=== PATIENT | male | born 1955 | race Caucasian/White ===

== ENCOUNTER 2019-08-21 10:04 | Day surgery (SDC) | payer OTHER, SELFPAY ==
[2019-08-20 17:25] VITALS: BMI 311.5
[2019-08-21] VITALS (8 sets, daily range): BP systolic 107–149; BP diastolic 72–98; PULSE 66–91; RESP 18–22; TEMP 36.4–36.6; O2SAT 93–98
[2019-08-21] MEDS: sodium chloride 0.9% 1,000 ML 30 ML IV (10:43)
--- NOTE | 2019-08-21 11:14 | ANES.PREANES ---
Pre-Anesthetic Assessment Pre-Anesthetic Assessment: Height/Weight: Height 1.75 m Weight 957.08 kg Temp Pulse Resp BP Pulse Ox 97.5 F L 78 18 149/98 98 08/21/19 10:31 08/21/19 10:31 08/21/19 10:31 08/21/19 10:31 08/21/19 10:31 Preop Diagnosis: Rotator cuff tear Proposed Procedure: Operation Date: 08/21/19 12:15 Proposed Procedures p Shoulder Arthroscopy, subacromial decompression, biceps tenodesis [id number], S46.012A S46.219A(Left) - Harinder Allen MD s Rotator Cuff Repair(Left) - Harinder Allen MD Familial anesthetic complications: No trouble Was Beta Chika taken within 24 hours: N/A Last intake: Intake Last Liquid Date 08/20/19 Last Liquid Time 20:00 Last Solid Date 08/20/19 Last Solid Time 20:00 Social: Social History: Alcohol (4-5 beers ) and Tobacco Packs per day: 1 ppd Exam: Pre-Anes Outpt Exam: alert, oriented x 3, clear to auscultation bilaterally and regular rate & rhythm Airway: Cervical ROM: WNL MP: 4 Additional comments: missing teeth Pulmonary: Pulmonary: URI Comments: \\runny nose, no cough no fever CV/HEM: CV/HEM: HTN : : None reported Hepatic: Hepatic: None reported GI: GI: None reported Metabolic: Metabolic: None reported Musc/skel: Musc/skel: None reported Neuropsych: Neuropsych: None reported Anesthetic Plan: ASA status: II Anesthesia: General and Regional (specify below) Other: ISB Risk of > 500 ml blood loss (7ml/kg in children): Yes, adequate IV access and fluids planned Meds/Allergies Current Medications: Current Medications Generic Name Dose Route Start Last Admin Trade Name Freq PRN Reason Stop Dose Admin Sodium Chloride 1,000 mls @ 30 ml s/hr 08/21/19 10:15 08/21/19 10:43 Sodium Chloride 0.9% IV 08/22/19 10:14 30 mls/hr .Q24H ROSMERY Administration Data Anesthesia Cardiac Studies: No Data to Display
[2019-08-21] MEDS: midazolam 1 mg/mL INJ 2 mL 2 MG IVP (11:20)
--- NOTE | 2019-08-21 11:35 | ANES.PROC ---
Anesthesia Procedures Procedure/Date: 08/21/19 Nerve Block ^: Nerve Block 1: Main Anesthesia: general anesthesia Time Out Performed: Yes Consent: requested by attending/covering physician, from patient and risks and benefits reviewed Nerve block location: interscalene Anesthesia monitors applied: pulse oximetry and oxygen Nerve block position: semi sitting Anesthetic Used: ropivicaine 0.5% (20 ml) and with decadron (4 mg) Ultrasound used to: recognize landmarks, visualize and ID brachial plexus and visualize and ID interscalene groove Nerve Stimulator Used?: No Interscalene/Femoral BLK: 2 stimuplex 22 g needle used for position and inplane approach Injection: neg aspiration of heme, paresthesia +/- and other Patient Tolerated Procedure: well and no complications Complications: none
--- NOTE | 2019-08-21 12:23 | PM.HPUD ---
H&P update H&P Update: DATE OF SURGERY/PROCEDURE: 08/21/19 DATE H&P PERFORMED: 08/08/19 H&P UPDATE INFORMATION: H&P completed within last 30 days and No changes to prior documentation PREOP DIAGNOSIS: Left rotator cuff tear, dislocation left biceps, anterior labral tear PRIMARY INDICATION FOR PROCEDURE: Massive tear left rotator cuff after shoulder dislocation PLANNED PROCEDURE: Operation Date: 08/21/19 12:15 Proposed Procedures p Shoulder Arthroscopy, subacromial decompression, biceps tenodesis [id number], S46.012A S46.219A(Left) - Harinder Allen MD s Rotator Cuff Repair(Left) - Harinder Allen MD Full H&P Medications/Allergies: Current Medications: Current Medications Generic Name Dose Route Start Last Admin Trade Name Freq PRN Reason Stop Dose Admin Sodium Chloride 1,000 mls @ 30 ml s/hr 08/21/19 10:15 08/21/19 10:43 Sodium Chloride 0.9% IV 08/22/19 10:14 30 mls/hr .Q24H ROSMERY Administration
--- NOTE | 2019-08-21 16:24 | PM.OP ---
Operative Report Post-Operative Note: Date of procedure: 08/21/19 Preop Diagnosis: Massive tear left rotator cuff, dislocation left biceps tendon Post-op Findings: Same Procedure Done: Arthroscopic repair left rotator cuff with bio inductive implant, biceps tenotomy, arthroscopic subacromial decompression Pathology: none sent Anesthesia: ISB Estimated blood loss (mL): 10 Complications: None Findings: Patient had a massive tear of his rotator cuff involving his superior subscapularis, entirety of his supraspinatus, and majority of his infraspinatus with retraction to the level of the glenoid. His biceps tendon was dislocated medial to the bicipital groov. he had small anterior spurs of his acromion Condition: stable Disposition: PACU Operative Report: Brief History: The patient sustained a dislocation of his left shoulder approximately 3 months ago with continued pain weakness and stiffness. An MRI revealed a massive tear of his rotator cuff. Procedure: The patient was taken to the operating room after interscalene blocks were provided by anesthesia. He was given 2 g of Ancef. He was positioned in the lateral position with his left arm in 15 pounds of traction. A timeout was performed. A posterior portal was made 2 cm inferior and medial to the posterior corner of the acromion. A scope cannula and trocar were driven into the glenohumeral joint revealing the massive tear of the rotator cuff. The biceps tendon was noted to be dislocated. Utilizing the Cook and Nephew Werewolf probe of the biceps was released from the superior labrum to allow better visualization of the subscapularis. There was a clear, sign. Working through a anterior lateral portal scar tissue was removed from the leading edge of the subscapularis. Debridement was then accomplished anterior to the level of the coracoid and posteriorly along the anterior glenoid. The posterior rotator cuff was better defined. An aggressive release with the werewolf was accomplished on a bursal and articular side of the rotator cuff. The edges were freshened up with the werewolf probe. At that point the subscapularis superior edge could be grasped with the grasper and retracted back to the lesser tuberosity. The lesser tuberosity was debrided with an acromionizer. Through an anterior portal a 4.5 mm helical anchor was placed with Ultrabraid suture. A Cook & Nephew first pass suture passer was used to shuttle each limb of the suture anchor suture through the leading edge of the subscapularis. The sutures were secured to the anterior portal bringing the superior subscapularis back to the rotator cuff. Attention was then focused on the supraspinatus and infraspinatus. After aggressive mobilization the supraspinatus could not be brought directly back to the footprint. I decision was made to proceed with a marginal convergence type of repair. A 6 Cook & Nephew Accu pass suture passer was used to shuttle a nylon suture through the posterior apex of the rotator cuff. A Arthro fernandez suture retriever was used to retrieve this suture through the subscapularis tissue. The nylon suture was used to shuttle Ultratape through the cuff and this was secured drawing the apex of tissues together. This was again repeated approximately 1 cm laterally further converting the rotator cuff tear. An acromionizer was used to medialize the rotator cuff footprint to reduce tension on the repair. A 5.5 mm Helocoil anchor was placed centrally. Using the Cook and Nephew FirstPass suture passer, 1 limb Ultratape was brought through the leading edge of the tear and 1 limb of Ultratape through the posterior tear. This was secured drawing the tear down to the debrided bone. The second suture was passed fluoroscopy the more mobile posterior rotator cuff further reinforcing the repair. Next a anterior lateral stab wound was placed and a regenerative and implant passed over the cuff. It was fixed peripherally with 6 soft tissue yaneth and laterally with 2 bone yaneth all with good purchase. Next a subacromial decompression was performed removing approximately 3 mm of anterior and inferior acromion to create a more biological space for a healing. All portals were closed with 3-0 Prolene. Sterile dressings were applied. The patient was extubated and taken to the recovery room in stable condition in abduction pillow. Coding Level of Care Code Acute Administrative Liaison for Jean Munoz
--- NOTE | 2019-08-21 18:30 | ANE.PACU ---
 Inpatient post-anesthesia follow up: Vital signs: Temperature 97.8 F Pulse Rate [Monito r] 84 Respiratory Rate 18 Blood Pressure [Le ft Arm] 133/87 Pulse Oximetry 98 Oxygen Delivery Me thod Room Air Oxygen Flow Rate Fraction of Inspir ed Oxygen Hydration adequate: Yes Nausea and vomiting: No Pain level: 1 Mental status: Baseline
== END 2019-08-22 23:00 | disposition home or self-care (01) ==
PROVIDERS: Family Provider Nurse Practitioner Family; PCP Nurse Practitioner Family; Visit Provider Orthopaedic Surgery
PROC: (CPT 29805; principal; 2019-08-21 12:00)
PROC: (CPT 29826; 2019-08-21 12:00)
DX: M75.122 Complete rotator cuff tear or rupture of left shoulder, not specified as traumatic (principal); F17.210 Nicotine dependence, cigarettes, uncomplicated; I10 Essential (primary) hypertension
CPT/HCPCS: 29826; 29827; 96365; 96374; C1713; J0690; J1100; J2250; J2405; J2704; J3010; J3490; J7030

== ENCOUNTER 2019-09-25 12:11 | Outpatient (RCR) | payer OTHER, SELFPAY | END 2019-10-12 23:59 | disposition home or self-care (01) | LOC: SPT 12:11 | PROVIDERS: Family Provider Nurse Practitioner Family; PCP Nurse Practitioner Family; Referring Provider Orthopaedic Surgery; Visit Provider Orthopaedic Surgery | DX: Z98.890 Other specified postprocedural states (principal); Z48.89 Encounter for other specified surgical aftercare | CPT/HCPCS: 97110; 97161 ==

== ENCOUNTER 2019-10-13 06:00 | Outpatient (RCR) | payer OTHER, SELFPAY | END 2019-11-12 23:59 | disposition home or self-care (01) | LOC: SPT 06:00 | PROVIDERS: Family Provider Nurse Practitioner Family; PCP Nurse Practitioner Family; Referring Provider Orthopaedic Surgery; Visit Provider Orthopaedic Surgery | DX: Z47.89 Encounter for other orthopedic aftercare (principal) | CPT/HCPCS: 97110 ==

== ENCOUNTER 2019-11-13 06:00 | Outpatient (RCR) | payer OTHER, SELFPAY | END 2019-12-12 23:59 | disposition home or self-care (01) | LOC: SPT 06:00 | PROVIDERS: Family Provider Nurse Practitioner Family; PCP Nurse Practitioner Family; Referring Provider Orthopaedic Surgery; Visit Provider Orthopaedic Surgery | DX: Z47.89 Encounter for other orthopedic aftercare (principal) | CPT/HCPCS: 97110; 97112 ==

== ENCOUNTER 2019-12-13 06:00 | Outpatient (RCR) | payer OTHER, SELFPAY | END 2020-01-12 23:59 | disposition home or self-care (01) | LOC: SPT 06:00 | PROVIDERS: Family Provider Nurse Practitioner Family; PCP Nurse Practitioner Family; Referring Provider Orthopaedic Surgery; Visit Provider Orthopaedic Surgery | DX: Z47.89 Encounter for other orthopedic aftercare (principal) | CPT/HCPCS: 97110; 97112; 97164 ==

== ENCOUNTER 2022-07-15 11:05 | Outpatient (CLI) | payer MEDICARE, OTHER, SELFPAY ==
--- NOTE | 2022-07-15 11:15 | CT_ITS ---
WS: [id number] LDCT LUNG CANCER SCREENING TECHNIQUE: Noncontrast CT of the chest with coronal and sagittal reformatted images. CLINICAL INFORMATION: NICOTINE DEPENDENCE,CIGARETTES COMPARISON: None. DLP: 88.80 mGy.cm DIvol: Mean CTDIvol: 1.60 (mGy) All CT scans at [facility] use at least one of these dose optimization techniques: automat ed exposure control; mA and/or kV adjustment per patient size (includes targeted exams where dose is matched to clinical indication); or iterative reconstruction. FINDINGS: Lungs are well aerated. No focal pneumonia or pleural fluid. Hazy groundglass opacities in the LEFT lower lobe with the largest opacity measuring 1.5 CM. This lesion is slightly spiculated and neoplasm not excluded. Recommend further evaluation with PET/CT. Additional surrounding slightly nod ular and hazy groundglass opacities. Partially visualized sclerosis in the lumbar spine at L3. This can be further evaluated with CT. Part ially included on this study. Moderate spondylitic changes in the lower cervical spine and upper thor acic spine with endplate degenerative changes. Mild aortic calcification. Coronary calcification. No mediastinal or hilar lymphadenopathy. No axilla ry lymphadenopathy. Normal GE junction. Hepatomegaly. Adrenal glands are normal. CT/CT lung screening [id number] IMPRESSION: 1. 1.5 cm spiculated groundglass opacity LEFT lower lobe. This could be infect ious or inflammatory but has a suspicious appearance and neoplasm not excluded. Recommend further evaluation with PET/CT. 2. Partially visualized sclerotic lesion in the lumbar spine at L3. Recommend further evaluation with CT lumbar spine. Metastatic disease not excluded. LUNG-RADS: 4B-Suspicious FOLLOW UP: PET/CT recommended
== END 2022-07-15 11:06 | disposition home or self-care (01) ==
LOC: RAD 11:05
PROVIDERS: PCP Nurse Practitioner Family; Visit Provider Physician Assistant
DX: Z12.2 Encounter for screening for malignant neoplasm of respiratory organs (principal); F17.210 Nicotine dependence, cigarettes, uncomplicated
CPT/HCPCS: 71271

== ENCOUNTER 2022-08-20 08:13 | Outpatient (CLI) | payer OTHER, MEDICARE, SELFPAY ==
--- NOTE | 2022-08-20 08:30 | PETR_ITS ---
PROCEDURE INFORMATION: Exam: PET/CT Skull Base to Mid-thigh Exam date and time: 08/20/2022 9:10 AM Age: 67 years old Clinical indication: Abnormal findings; Abnormal lung screen CT; Additional info: Spiculated ground glass opacity lrads 4-b suspicious, 07/15/22 CT lung: LABS AND CLINICAL REPORTS: Glucose: 90 mg/dl Treatment strategy for malignancy (PET staging): Initial Staging (PI) TECHNIQUE: Imaging protocol: Following at least four-hour fasting and following the injection of F-18-FDG, low dose CT images were obtained. Then, PET images were obtained. Attenuation corrected images were constructed using the CT scan. Fused images of PET and CT were reviewed. The standardized uptake values (SUV) reported below are maximum values within a region of interest, expressed in gm/ml. Exam includes orbital meatal line to mid-thigh. Radiopharmaceutical: 13.31 mCi F-18 FDG (Fluorodeoxyglucose), IV. Time of imaging post radiopharmaceutical administration: 1 hour COMPARISON: CT lung screening [id number] 07/15/2022 11:33 AM FINDINGS: Brain: Visualized brain has normal physiologic uptake. Pharynx: No abnormal uptake. Larynx: No abnormal uptake. Lungs, pleura and trachea: There is mild FDG uptake associated with the 1.5 cm left lower lobe ground-glass nodule with SUV max 1.61. The nodule appears somewhat less solid than on the comparison exam, though differences could relate to differences in CT technique. The surrounding more subtle ground-glass opacities appear to have improved. Heart: Normal physiologic uptake. Mediastinal space: No abnormal uptake. Liver: Hepatic steatosis. Gallbladder and bile ducts: No abnormal uptake. Pancreas: No abnormal uptake. Spleen: No abnormal uptake. Adrenal glands: No abnormal uptake. Kidneys and ureters: Right renal cyst. Stomach and bowel: No abnormal uptake. Vasculature: No abnormal uptake. Lymph nodes: No abnormal uptake. No lymphadenopathy in the head, neck, chest, abdomen, pelvis, and extremities. Bones/joints: There is some degenerative FDG uptake about the left shoulder. Soft tissues: No abnormal uptake in the visualized head, neck, chest, abdomen, pelvis, and extremities. PET/PET skulltothigh INITIAL [id number] IMPRESSION: There is mild FDG uptake associated with the 1.5 cm left lower lobe ground-glass nodule as detailed above. Differential considerations again include infectious versus neoplastic etiologies. Recommend 3 month follow-up CT.
== END 2022-08-20 08:14 | disposition home or self-care (01) ==
LOC: RAD 08-22 05:47
PROVIDERS: PCP Nurse Practitioner Family; Visit Provider Internal Medicine Pulmonary Disease
DX: R91.8 Other nonspecific abnormal finding of lung field (principal)
CPT/HCPCS: 78815; A9552

== ENCOUNTER 2022-11-22 09:20 | Outpatient (CLI) | payer OTHER, MEDICARE, SELFPAY ==
--- NOTE | 2022-11-22 09:30 | CT_ITS ---
WS: [id number] CT CHEST TECHNIQUE: Noncontrast CT of the chest with coronal and sagittal reformatted images. CLINICAL INFORMATION: 3 month f/u lung nodule COMPARISON: CT July 2022 and PET/CT 08/20/22 DLP: 371.[address] scans at [facility] use at least one of these dose optimization techniques: automated e xposure control; mA and/or kV adjustment per patient size (includes targeted exams where dose is matc hed to clinical indication); or iterative reconstruction. FINDINGS: Previously described spiculated nodule LEFT lower lobe with surrounding groundglass infiltr ate appears improved and is less apparent today's examination. Small amount of residual nodularity in this area. LEFT lower lobe nodule measuring 7 mm near the diaphragm. This is best seen on the fernandez l and sagittal reformatted images. Recommend [address] follow-up. Lungs are well aerated. No acute pulmonary infiltrates. No focal pneumonia or pleural fluid. Normal c aliber thoracic aorta. Aortic calcification. Coronary calcification. No mediastinal or hilar lymphade nopathy. Adrenal glands are normal. Normal GE junction. CT/CT chest wo con [id number] IMPRESSION: 1. Previously described spiculated groundglass nodule in the LEFT lower lobe i s less apparent today with a small amount of residual nodularity in this area. 2. Small nodule LEFT lower lobe measuring 7 mm near the diaphragm. Recommend [address] follow-up. 3. No other suspicious pulmonary parenchymal abnormalities.
== END 2022-11-22 09:21 | disposition home or self-care (01) ==
LOC: RAD 09:21
PROVIDERS: PCP Nurse Practitioner Family; Visit Provider Internal Medicine Pulmonary Disease
DX: R91.1 Solitary pulmonary nodule (principal)
CPT/HCPCS: 71250

== ENCOUNTER 2023-05-25 11:43 | Outpatient (CLI) | payer OTHER, MEDICARE, SELFPAY ==
--- NOTE | 2023-05-25 12:00 | CTR_ITS ---
PROCEDURE INFORMATION: Exam: CT Chest Without Contrast; Diagnostic Exam date and time: 05/25/2023 12:01 PM Age: 68 years old Clinical indication: Abnormal findings; Abnormal radiologic exam of lung or chest; Patient HX: --f/u nodules; Additional info: 6 month f/u TECHNIQUE: Imaging protocol: Diagnostic computed tomography of the chest without contrast. Radiation optimization: All CT scans at this facility use at least one of these dose optimization techniques: automated exposure control; mA and/or kV adjustment per patient size (includes targeted exams where dose is matched to clinical indication); or iterative reconstruction. REPORTING DATA: Count of CT and Cardiac NM exams in prior 12 months: This patient has received 3 known CTs and 0 known cardiac nuclear medicine studies in the 12 months prior to the current study. COMPARISON: CT chest wo con [id number] 11/22/2022 9:40 AM RADIATION DOSE METRICS: Total DLP (mGy-cm): 542.11 FINDINGS: Lungs: Interval resolution of 7 mm nodule in the anterior inferior left lower lobe. Interval development of new 9 mm nodule in the posterolateral left lower lobe on axial series 3, image 41 with minimal adjacent ground-glass opacity. There is no consolidation. Trachea and central bronchi are unremarkable. Pleural spaces: There is no pleural effusion or pneumothorax. Heart: Heart size is normal. There is no pericardial effusion. Coronary arteries: There is moderate coronary artery calcification. Lymph nodes: There is no mediastinal or hilar lymphadenopathy. Vasculature: There is mild aortic atherosclerotic disease. Intraperitoneal space: Visible structures in the upper abdomen are unremarkable. Bones/joints: Moderate disc degeneration in the lower cervical spine. No acute fracture. Soft tissues: The extrathoracic soft tissues are unremarkable. CT/CT chest wo con [id number] IMPRESSION: Wandering pulmonary nodules in the left lower lobe with interval resolution of 7 mm left lower lobe nodule and interval development of 9 mm left lower lobe nodule since 11/22/2022. Multiple nodules with associated ground-glass opacities have resolved since 07/15/2022. These findings are nonspecific and could represent recurrent bronchiolitis, recurrent aspiration or pulmonary vasculitis. A new malignant nodule is not excluded. For both low risk and high risk patients, consider repeat CT Chest at 3 months. (Reference: Charles) REFERENCES: Charles Smith et al. Guidelines for Management of Incidental Pulmonary Nodules Detected on CT Images: From the Fleischner Society 2017. Radiology. 2017;284(1):228-243.
== END 2023-05-25 11:44 | disposition home or self-care (01) ==
PROVIDERS: PCP Nurse Practitioner Family; Visit Provider Internal Medicine Pulmonary Disease
DX: R91.8 Other nonspecific abnormal finding of lung field (principal)
CPT/HCPCS: 71250

== ENCOUNTER 2023-08-25 09:42 | Outpatient (CLI) | payer OTHER, MEDICARE, SELFPAY ==
--- NOTE | 2023-08-25 10:00 | CT_ITS ---
WS: [id number] CT chest wo con [id number] HISTORY: 3 month f/u TECHNIQUE: Axial imaging performed through the thorax. Coronal and sagittal reformats are submitted. All CT scans at [facility] use at least one of these dose optimization techniques: automated exposure control; mA and/or kV adjustment per patient size (includes targeted exams where dose is mat ched to clinical indication); or iterative reconstruction. CONTRAST: None DLP: 568.88 mGy.cm COMPARISON: 05/25/2023, 11/22/2022 Lungs and central airway: Lungs are mildly hyperinflated. No residual pulmonary nodule or mass. No pn eumonia. Pleura: Normal. No pleural effusion. Heart and pericardium: Normal size heart with no pericardial effusion. Mediastinum and traci: No mediastinum or hilar adenopathy. Vessels: Mild atherosclerosis aorta. Normal sized pulmonary artery. Chest wall and lower neck: No soft tissue masses. Upper abdomen: Normal. Osseous structures: No destructive process. IMPRESSION: 1. Complete resolution of the previously described LEFT lower lobe pulmonary nodules. No pneumonia. 2. Mild pulmonary hyperexpansion. 3. No adenopathy.
== END 2023-08-25 09:43 | disposition home or self-care (01) ==
LOC: RAD 09:42
PROVIDERS: PCP Nurse Practitioner Family; Visit Provider Internal Medicine Pulmonary Disease
DX: R91.1 Solitary pulmonary nodule (principal)
CPT/HCPCS: 71250

== ENCOUNTER 2025-02-10 13:44 | Outpatient (CLI) | payer MEDICARE, SELFPAY ==
--- NOTE | 2025-02-10 13:49 | CT_ITS ---
WS: [id number] LDCT LUNG CANCER SCREENING HISTORY: NICOTINE DEPENDENCE, CIGARETTES TECHNIQUE: Axial imaging performed from the apices to 1 cm below the costophrenic angles. Coronal and sagittal reformats are submitted with axial MIP series. All CT scans at [facility] use at least one of these dose optimization techniques: automated exposure control; mA and/or kV adjustment per patient size (includes targeted exams where dose is matched to clinical indication); or iterative reconstruction. DLP: 85.80 mGy.cm DIvol: Mean CTDIvol: 1.90 (mGy) COMPARISON: 08/25/2023 Diagnostic quality: Satisfactory Lungs: Hyperexpanded lungs with emphysema. There are a few very tiny micronodules in the upper lobes. Small area of subsegmental LEFT groundglass attenuation RIGHT upper lobe. No pneumonia. Heart: Normal size heart with no pericardial effusion.. Moderate coronary artery calcifications. Other findings: Mild atherosclerosis aorta. Normal size aorta and pulmonary artery. No pericardial effusion. No adrenal mass. Increase in thoracic kyphosis. Disc spaces are narrowed within the thoracic spine. CT/CT lung screening [id number] IMPRESSION: LUNG-RADS: 2-Benign Appearance or Behavior FOLLOW UP: 12 Month: Continue annual screening with LDCT OTHER FINDINGS (S MODIFIER): None.
== END 2025-02-10 13:45 | disposition home or self-care (01) ==
LOC: RAD 13:46
PROVIDERS: PCP Nurse Practitioner Family; Visit Provider Nurse Practitioner Family
DX: Z12.2 Encounter for screening for malignant neoplasm of respiratory organs (principal); F17.210 Nicotine dependence, cigarettes, uncomplicated; J43.9 Emphysema, unspecified; R91.8 Other nonspecific abnormal finding of lung field; I25.10 Atherosclerotic heart disease of native coronary artery without angina pectoris; I70.0 Atherosclerosis of aorta; M40.294 Other kyphosis, thoracic region; M51.34 Other intervertebral disc degeneration, thoracic region
CPT/HCPCS: 71271